=== PATIENT | male | born 1985 | race Caucasian/White ===

== ENCOUNTER 2016-11-13 13:27 | Outpatient (CLI) | payer OTHER ==
--- NOTE | 2016-11-16 08:34 | MRI Report ---
EXAM: RIGHT KNEE MRI WITHOUT CONTRAST EXAM DATE: 11/13/2016 02:16 PM. CLINICAL HISTORY: Right knee pain while running. COMPARISON: None. TECHNIQUE: Multiplanar, multisequence T1-weighted and fluid-sensitive sequences of the knee without c ontrast. Other: None. FINDINGS: Bones: No fractures or subluxations. No marrow edema. No bone lesions. Articular Cartilage: Unremarkable. Medial Meniscus: The medial meniscus is intact. Lateral Meniscus: The lateral meniscus is intact. Cruciate Ligaments: The anterior and posterior cruciate ligaments are intact. Collateral Ligaments: The medial collateral and lateral collateral ligamentous structures are intact. Tendons: The quadriceps, patellar, semimembranosus, and popliteus tendons are unremarkable. Musculature: No edema or fatty atrophy. Other: There is a small joint effusion. No popliteal cyst. No loose bodies. The medial and lateral re tinacula are intact. The subcutaneous tissues and fat pads are unremarkable. IMPRESSION: 1. Small joint effusion. 2. No meniscal or ligamentous injury. [facility] MUSCULOSKELET[facility] RADIOLOGY SECTION Referring Provider Line: [phone] SITE ID: [id number]
== END 2016-11-13 13:28 | disposition home or self-care (01) ==
LOC: DI 13:27
DX: M25.561 Pain in right knee (principal); M79.661 Pain in right lower leg; M25.461 Effusion, right knee